=== PATIENT | male | born 1965 | race Caucasian/White ===

== ENCOUNTER 2025-01-09 21:36 | Inpatient (IN) | payer OTHER, SELFPAY ==
[2025-01-09 18:21] VITALS: BP 184/130
--- NOTE | 2025-01-09 19:16 | ED.GENMED ---
History of Present Illness
General
Chief Complaint: Swelling
Source: patient
Time Seen by Provider: 01/09/25 18:57
History of Present Illness
History of Present Illness:
This patient is a 5-year-old male presents emergency department with complaints of progressive swelling that he describes as 'water weight', over the past week or so. He elected to increase his Lasix dosing from 40 mg daily to twice daily and he is
not improving. In particular, he notes that his legs are swollen, his scrotum is swollen, and he has a 'buried penis 'because of the swelling in the scrotal/ area. He is urinating without difficulty, and denies dysuria, hematuria, flank pain,
fever, chills, nausea, vomiting, chest pain or pressure. He denies abdominal pain. He denies shortness of breath or dyspnea on exertion, but does note that he feels like he is wheezing when he goes to sleep associated with a nonproductive cough
for the last week or so. 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
Past History
Past History
ED Past Medical History: Other (A-fib, heart failure, insulin-dependent diabetes)
ED Past Surgical History: Orthopedic and Other (Toe amputation)
Social History
Tobacco: Former smoker
Alcohol: None
Drug: None
Personal: Single
Living: alone
Employment: Employed
Phy Exam
Physical Exam
Physical Exam:
GENERAL: Alert , in no apparent distress, nontoxic, pleasant
EYE: pupils equal and reactive
NECK: Supple, no significant adenopathy.
ENT: o/p clr, mmm.
CARDIAC: Regular rate and rhythm .
LUNGS: Clear breath sounds bilaterally, no acute respiratory distress, no wheezes/rales/rhonchi
ABDOMEN: Soft, without focal tenderness, no r/g, no cvat
NEUROLOGICAL: Alert and oriented, no focal neuro deficits
SKIN: Warm and dry, skin intact.
MUSCULOSKELETAL: 2+ left lower extremity edema, well perfused. (Patient has a right lower extremity amputation)
PSYCH: Normal and appropriate interaction.
: There is scrotal soft tissue swelling noted throughout without associated tenderness to palpation, redness, warmth, blistering, or other abnormalities. Meatus without lesions
Scores
Heart Failure Risk
Heart Failure Risk Score: Not Applicable
Course
Orders/Labs/Results
Orders:
Orders
01/09/25 19:15
Cardiac Monitoring- Treatment ONCE
CR Chest - 2 Views Urgent
Comment:
Reason For Exam: cough
Pulse Ox/cont/shift [RESP] Stat
Quantity: 1
01/09/25 19:39
Complete Blood Count/No Diff Urgent
Comprehensive Metabolic Panel Urgent
NT-proBNP Urgent
Troponin I Urgent
Abnormal Lab Results
01/09/25
19:39
Hgb 12.5 L g/dL
(13.0-18.0)
MCH 26.3 L pg
(27.0-31.0)
MCHC 30.4 L g/dL
(33.0-37.0)
RDW 15.2 H %
(11.5-14.5)
Carbon Dioxide 31 H mmol/L
(22-30)
BUN 22 H mg/dl
(9-20)
Glucose 179 H mg/dl
(70-99)
Total Protein 6.0 L g/dl
(6.3-8.2)
Albumin 3.4 L g/dl
(3.5-5.0)
01/09/25 19:39
01/09/25 19:39
Vital Signs
Initial and Last Documented VS:
Initial Vital Signs
Temp Pulse Resp BP Pulse Ox
97.6 F 106 20 184/130 97
01/09/25 18:21 01/09/25 18:21 01/09/25 18:21 01/09/25 18:21 01/09/25 18:21
Last Documented Vital Signs
Temp Pulse Resp BP Pulse Ox
97.6 F 106 20 184/130 97
01/09/25 18:21 01/09/25 18:21 01/09/25 18:21 01/09/25 18:21 01/09/25 18:21
*Critical Care Note
Total Time (30-74mins, 75-104mins- exclusive of procedures): Not Applicable
Update Note
Update Note:
Patient presents to the Emergency Department with ___swelling
Number and Complexity of Problems Addressed at the Encounter
� Chronic conditions affecting care:
� Acute Exacerbation and/or Progression of Chronic Illness:
� Differential Diagnosis includes: But not limited to heart failure exacerbation, medication noncompliance, etc. etc.
Amount and/or Complexity of Data to be Reviewed and Analyzed
� I performed an independent evaluation of and my interpretation is:
EKG: Read by me, left axis deviation, slightly low voltage, no acute ischemia, junctional
CT:
Xrays: Read by radiology, moderate pulmonary edema with small right pleural effusion feel more
Laboratory Studies: Troponin 0.033, unremarkable. BNP elevated 3730 consistent with suspected heart failure exacerbation
Other:
� Review of other/old records reveals:
� Clinical information was obtained by an independent historian:
� Prescriptions/Medications Considered but not given:
� Further testing considered but not performed:
Risk of Complications and/or Morbidity or Mortality of Patient Management
� Social determinants of health affecting care:
� Discussion with other providers (PCP, Hospitalists, Consultants, etc):
� Escalation of care including admission/observation vs risk of discharge considered: 8:33 PM patient with suspected heart failure exacerbation, describes wheezing while laying down, pulmonary edema noted on chest x-ray and BNP
also elevated. He has swelling noted on exam. Patient is unclear of his baseline weight. Will give IV Lasix here and admit for further care. No chest pain
ED Attending Note
-
Portions of this chart may have been created with voice recognition software.� Occasional wrong word or��sound alike� substitutions may have occurred due to the inherent limitations of voice recognition software.
Discharge Plan
Departure
Patient Disposition: Admit
Date of Disposition: 01/09/25
Time of Disposition: 20:37
Admit to: Telemetry
Admit to doctor: tiffanie
Presentation/result/management discussed w/ accepting MD/DO: Hospitalist
Condition: Fair
Discharge Problem:
Heart failure
Prescriptions:
No Action
furosemide [Lasix] 40 mg Tablet
40 mg PO BID
Discharge Date and Time
Print Language: BRITISH
[2025-01-09 19:30] VITALS: BP 143/91
[2025-01-09 19:40] VITALS: BP 150/95
[2025-01-09 19:50] LABS: Hematocrit 41.1 % (39.0-52.0); Hemoglobin 12.5 g/dL (13.0-18.0); Mean Corp Hgb Conc. 30.4 g/dL (33.0-37.0); Mean Corpuscular Hgb 26.3 pg (27.0-31.0); Mean Corpuscular Volume 86.5 fL (80.0-94.0); Mean Platelet Volume 9.7 fL (7.4-10.4); Platelet Count 247 10^3/uL (130-400); Red Blood Cell Count 4.75 10^6/uL (4.70-6.10); Red Cell Dist. Width 15.2 % (11.5-14.5); White Blood Cell Count 8.5 10^3/uL (4.8-10.8)
[2025-01-09 20:09] LABS: NT-proBNP 3730 pg/ml; Troponin I 0.033 ng/ml
[2025-01-09 20:10] LABS: ALT (SGPT) 25 U/L (0-50); AST (SGOT) 33 U/L (17-59); Albumin 3.4 g/dl (3.5-5.0); Alkaline Phosphatase 114 U/L (38-126); Blood Urea Nitrogen 22 mg/dl (9-20); Calcium 8.4 mg/dl (8.4-10.2); Carbon Dioxide 31 mmol/L (22-30); Chloride 98 mmol/L (98-107); Glucose 179 mg/dl (70-99); Potassium 4.8 mmol/L (3.5-5.1); Sodium 136 mmol/L (135-145); Total Bilirubin 1.3 mg/dl (0.2-1.3); eGFR > 60.00
[2025-01-09] MEDS: LASIX 60 MG IV (20:55)
[2025-01-09 20:56] VITALS: BP 146/93
--- NOTE | 2025-01-09 20:56 | HPS.HSE ---
Family Physician
-
Family Physician:
Chief Complaint
-
swelling
History of Present Illness
59-year-old male past medical history of type II diabetes, right below-knee amputation, CHF, atrial fibrillation on Eliquis presenting with progressive swelling over the past week. He has swelling in his legs and scrotum and abdomen. He increase
his Lasix from 40 mg once a day to twice a day without improvement. He is urinating without difficulty. Denies urinary symptoms. He has shortness of breath and has wheezing when he goes to sleep with nonproductive cough for the past week. He has
not seen his memorial counselor in several months. Denies chest pain. Denies fevers or chills. He thinks he has gained 50 pounds in the past week.
He follows a memorial counselor in [place].
He quit drinking alcohol 4 years ago. Denies smoking.
No known family history of heart disease.
Medical History
Past Medical History
Past Medical History: Reports Other (type II diabetes, right below-knee amputation, CHF, atrial fibrillation on Eliquis)
Past Surgical History: Reports Other (Hernia repair,)
Social History
Tobacco: Non-smoker
Alcohol: None
Drug: None
Family History
Family History: Not pertinent
Allergies / Home Medications
Allergies reflects when Allergies were last updated in [facility].
Home Medications with original date entered in [facility]
Allergy/Medication List:
Allergies
Allergy/AdvReac Type Severity Reaction Status Date / Time
Penicillins AdvReac Unknown Nosebleed, Verified 01/09/25 18:25
GI upset
Home Medications
furosemide 40 mg tablet (Lasix) 40 mg PO BID 04/01/23
Review of Systems
-
History Source: Patient
A 12 point ROS was completed and negative except as noted: Yes
Constitutional: Reports No Symptoms
EENT: Reports No Symptoms
Respiratory: Reports See HPI
Cardiac: Reports See HPI
Abdomen/GI: Reports See HPI
: Reports No Symptoms
Musculoskeletal: Reports No Symptoms
Skin: Reports No Symptoms
Neurological: Reports No Symptoms
Endocrine: Reports No Symptoms
Hematologic/Lymphatic: Reports No Symptoms
Psych: Reports No Symptoms
Physical Exam
Vital Signs
Vital Signs
Temp Pulse Resp BP Pulse Ox
97.6 F 106 20 184/130 97
01/09/25 18:21 01/09/25 18:21 01/09/25 18:21 01/09/25 18:21 01/09/25 18:21
Physical Exam
General: Well Developed, Well Nourished and No Apparent Distress
HEENT: NormoCephalic, Moist mucous membranes and Atraumatic
Respiratory: Clear
Cardiac: S1/S2 and Regular Rhythm; No Murmur or Rub
GI: Soft, Non Tender, Non Distended and Normal Bowel Sounds; No Organomegaly
Rectal: Deferred by Provider
Musculoskeletal: No Clubbing, No Cyanosis and No Edema
Skin: No Rash
Neuro: Nonfocal/grossly intact
Laboratory Results
-
01/09/25 19:39
01/09/25 19:39
Laboratory Results
Total Bilirubin 1.3 mg/dl (0.2-1.3) 01/09/25 19:39
AST 33 U/L (17-59) 01/09/25 19:39
ALT 25 U/L (0-50) 01/09/25 19:39
Alkaline Phosphatase 114 U/L (38-126) 01/09/25 19:39
Troponin I 0.033 ng/ml 01/09/25 19:39
Data Reviewed
-
Lab Data: Labs Reviewed by me
Old Records: Reviewed
Impression/Plan
-
IMPRESSION:
PLAN:
# Acute on chronic CHF exacerbation
-Cardiac BNP 3700
-Chest x-ray shows moderate acute interstitial and alveolar cardiogenic pulmonary edema
-Check I's and O's, daily weights
-40 IV Lasix twice daily
-Check echo
-Continue spironolactone, farxiga, Entresto, metoprolol
-Cardiology consulted
Type 2 diabetes
-Not on diabetic medication
-Insulin sliding scale
History of atrial fibrillation/flutter unspecified type
-Continue dabigatran
History of right BKA
Full code
DVT prophylaxis�dabigatran
Cardiac/diabetic
[2025-01-09 22:00] VITALS: BP 134/95
[2025-01-09 23:15] VITALS: BMI 48.1
[2025-01-09 23:42] LABS: Glucose - Point of Care 148 mg/dl (70-99)
[2025-01-09 23:44] VITALS: BMI 48.1
--- NOTE | 2025-01-10 00:28 | PTCARENOTE ---
Pt transferred from the ED to room 338-1. Pt walked to the bed. Admission and assessment complete. Oriented to room. Call singleton within reach.
[2025-01-10 02:04] VITALS: BP 155/97
[2025-01-10 03:36] VITALS: BP 140/88
[2025-01-10 06:00] VITALS: BMI 48.1
[2025-01-10 06:36] VITALS: BMI 48.1
--- NOTE | 2025-01-10 07:41 | W.PN.HOSP.TC ---
Today's Communication/Plan
-
see plan
Assessment / Plan
Assessment / Plan
Gen: NAD, AAOx3.
Eyes: EOMI, PERRLA, no scleral icterus.
Neck: supple.
CV: RRR, +S1/S2, no m/r/g.
Resp: CTAB, no rales, wheezes, or rhonchi.
Abd: +BS, soft, NT, ND
Skin: No rashes. 2-3+ B/L LE edema
Neuro: CN 2-12 intact, non-focal.
Psych: Normal mood and affect.
Acute on chronic CHF exacerbation
-proBNP 3700
-Chest x-ray shows moderate acute interstitial and alveolar cardiogenic pulmonary edema
-Check I/Os, daily wts
-increase lasix to 80mg IV BID
-Check echo
-Continue spironolactone, farxiga, Entresto, metoprolol
-Cardiology consulted
Other problems:
DM2: not on diabetic medications. Check a1c, SSI/accuchecks
h/o atrial fibrillation/flutter, unspecified type: cont dabigatran
Morbid obesity due to excess calories
h/o BKA
FULL/dabigatran
Anticipated Discharge: 24 - 48 hours
Subjective/Interval History
-
Date of Service: January 10, 2025
No new complaints.
Objective Data
-
Labs:
Laboratory Results
01/09/25 01/10/25
19:39 06:05
WBC 8.5 Pending
Hgb 12.5 L Pending
Hct 41.1 Pending
Plt Count 247 Pending
Sodium 136 Pending
Potassium 4.8 Pending
Chloride 98 Pending
Carbon Dioxide 31 H Pending
BUN 22 H Pending
Creatinine 1.0 Pending
Glucose 179 H Pending
Calcium 8.4 Pending
Total Bilirubin 1.3 Pending
AST 33 Pending
ALT 25 Pending
Alkaline Phosphatase 114 Pending
Vital Signs:
Vital Signs
Temp Pulse Resp BP Pulse Ox
99.0 F 93 18 140/88 94
01/10/25 03:36 01/10/25 03:36 01/10/25 03:36 01/10/25 03:36 01/10/25 03:36
I&O
01/09/25 01/10/25 01/11/25
06:59 06:59 06:59
Intake Total 480 / 480
Output Total 1000 / 1000
Balance -520 / -520
[2025-01-10 07:42] LABS: % Basophils 0.2 % (0-2); % Eosinophils 1.9 % (0-6); % Immature Granulocytes 0.4 % (0-0.5); % Lymphocytes 20.4 % (20.5-51.1); % Monocytes 11.7 % (1.7-9.3); % Neutrophils 65.4 % (42.2-75.2); Absolute Eosinophils 0.2 10^3/uL (0-0.7); Absolute Lymphocytes 1.7 10^3/uL (1.2-3.4); Absolute Neutrophils 5.5 10^3/uL (1.4-6.5); Hematocrit 39.2 % (39.0-52.0); Mean Corp Hgb Conc. 30.6 g/dL (33.0-37.0); Mean Corpuscular Hgb 26.3 pg (27.0-31.0); Mean Platelet Volume 9.6 fL (7.4-10.4); Nucleated Red Blood Cells % 0 % (-); Platelet Count 228 10^3/uL (130-400); Red Blood Cell Count 4.56 10^6/uL (4.70-6.10); Red Cell Dist. Width 15.4 % (11.5-14.5); White Blood Cell Count 8.5 10^3/uL (4.8-10.8)
[2025-01-10 07:48] VITALS: BP 138/86
[2025-01-10 08:08] LABS: ALT (SGPT) 23 U/L (0-50); AST (SGOT) 30 U/L (17-59); Albumin 2.9 g/dl (3.5-5.0); Alkaline Phosphatase 109 U/L (38-126); Blood Urea Nitrogen 19 mg/dl (9-20); Calcium 8.2 mg/dl (8.4-10.2); Carbon Dioxide 32 mmol/L (22-30); Chloride 101 mmol/L (98-107); Estimated Creatinine Clearance 118 ml/min; Glucose 173 mg/dl (70-99); Potassium 3.8 mmol/L (3.5-5.1); Sodium 138 mmol/L (135-145); Total Bilirubin 1.1 mg/dl (0.2-1.3); Total Protein 5.4 g/dl (6.3-8.2); eGFR > 60.00
[2025-01-10 08:28] LABS: Glucose - Point of Care 155 mg/dl (70-99)
[2025-01-10] MEDS: NOVOLOG FLEXPEN-LOW RESISTANCE 1 UNITS SC ×3 (08:44→17:59)
[2025-01-10] MEDS: LASIX 40 MG IV ×2 (08:45→10:52)
[2025-01-10] MEDS: VITAMIN D3 (cholecalciferol) 125 MCG PO (08:51)
[2025-01-10] MEDS: PRADAXA 150 MG PO ×2 (08:51→20:03)
--- NOTE | 2025-01-10 09:17 | CON.CAR ---
Addendum entered and electronically signed by Mike Woosd MD 01/10/25 12:27:
I saw and examined the patient.
The COVERING MACHINE OPERATOR's note was reviewed and I agree with the note.
Comment: 59 year old male (known to Dr. Benjamin, his primary senior relationship manager), with heart failure, atrial fibrillation, uncontrolled type 2 diabetes, and right BKA, presented to the emergency department with a chief complaint of progressive swelling.
He has chronic HF type unknown but feels his lasix is not working as well as prior. He says his base weight is 300 lbs, he is in acute on chronic presumed HFpEF.
- IV lasix bid
Original Note:
Medical History
-
Chief Complaint: Progressive swelling
History of Present Illness:
Giovanny Lew is a 59 year old male (known to Dr. Benjamin, his primary senior relationship manager), with heart failure, atrial fibrillation, uncontrolled type 2 diabetes, and right BKA, presented to the emergency department with a chief complaint of progressive
swelling. He endorses medication adherence with his furosemide. He does not think he is voiding as much as he used to when he was started on furosemide. He endorses orthopnea. He denies PND. He is volume overloaded on exam and chest x-ray. He
is on the hospitalist service and cardiology is consulted for heart failure management. He is not having any chest pain.
Past Medical History
Past Medical History: Arrhythmias (Atrial fibrillation [type unknown, on dabigatran]), CHF and NIDDM
Past Surgical History: Other (Right BKA)
Social History
Tobacco: Non-Smoker
Alcohol: None
Personal: Single
Living: Alone
Employment: Employed ([employer])
Family History
Family History: Reviewed & Not Pertinent
Allergies / Home Medications
Allergy/AdvReac Type Severity Reaction Status Date / Time
Penicillins AdvReac Unknown Nosebleed, Verified 01/09/25 18:25
GI upset
�Medication �Instructions �Recorded �Confirmed �Type
furosemide 40 mg tablet (Lasix) 40 mg PO BID Fluid 04/01/23 01/09/25 History
Retention/Swelling
dabigatran etexilate 150 mg 150 mg PO QPM Blood Clot 01/09/25 01/09/25 History
capsule (Pradaxa) Prevention/Tx
metoprolol succinate 25 mg 25 mg PO QPM Blood Pressure 01/09/25 01/09/25 History
tablet,extended release 24 hr
(Toprol XL)
spironolactone 25 mg tablet 25 mg PO QPM Fluid 01/09/25 01/09/25 History
Retention/Swelling
vitamin D3 125 mcg (5,000 1 cap PO DAILY Supplement 01/09/25 01/09/25 History
unit)-vitamin K2 180 mcg capsule
Review of Systems
-
History Source: Patient
All other systems: Negative unless noted
Constitutional: Weight Gain and Fatigue
EENT: No Symptoms
Respiratory: No Symptoms
Cardiac: No Symptoms
Abdomen/GI: No Symptoms
: No Symptoms
Musculoskeletal: Edema
Skin: No Symptoms
Neurological: No Symptoms
Hematologic/Lymphatic: No Symptoms
Physical Exam
Vital Signs
Temp Pulse Resp BP Pulse Ox
98.9 F 99 16 155/96 93
01/10/25 07:48 01/10/25 08:45 01/10/25 07:48 01/10/25 08:45 01/10/25 07:48
Lab Results
01/10/25 06:05
01/10/25 06:05
Troponin I 0.033 ng/ml 01/09/25 19:39
Tnz-C-Bjgbrendumc Pept 3730 pg/ml 01/09/25 19:39
Physical Exam
General: Well Developed, Well Nourished, No Apparent Distress and Comfortable
HEENT: Normocephalic and Moist Mucous Membranes
Respiratory: Crackles and Non Labored Respirations
Cardiac: S1/S2, Regular Rhythm and Peripheral Edema
Breast: Deferred by me
GI: Soft, Non Tender, Non Distended and Normal Bowel Sounds
Rectal: Deferred by Provider
Genito-urinary: No Costovertebral Tender
Musculoskeletal: No Clubbing, No Cyanosis and No Edema
Skin: Warm and Dry
Neuro: AO x 3
Impression / Plan
-
IMPRESSION/PLAN: 59M with heart failure, atrial fibrillation, uncontrolled type 2 diabetes, & right BKA, presented to the emergency department with a chief complaint of progressive swelling.
Primary senior relationship manager: Dr. Benjamin ([facility])
Heart failure, presumed HFpEF - acute on chronic
-CXR with pulmonary edema
-Diuresis with furosemide 40mg IV BID, this requires intensive monitoring
-Goal weight TBD
-Case management to check pricing on SGLT2
-Update echocardiogram
Atrial fibrillation, type unknown, presumed paroxysmal
-In sinus rhythm
-Oral Anticoagulation: Dabigatran 150 mg twice daily, he denies missed doses and abnormal bleeding
-[id number]: score at least 2 (Heart failure, Diabetes Mellitus)
PVCs, triplet on telemetry, increase beta payton
Type 2 diabetes mellitus, uncontrolled, HgbA1c 9.0%, he is not on any antidiabetic agents in the outpatient setting
Right BKA
[2025-01-10 11:27] VITALS: BP 146/90
[2025-01-10 11:44] LABS: Glucose - Point of Care 193 mg/dl (70-99)
--- NOTE | 2025-01-10 13:44 | CM ---
CM following re: discharge planning.
Reviewed pt's chart, met with p.
Pt is a 59 year old male, admitted with primary dx of Acute on chronic CHF exacerbation.
Pt reports he lives alone in an apartment 1st floor, 1 step to enter, has mother who lives in [place]. Pt stated he does not have any other family members, has supportive friend who livers in the same apartment. Pt reports he has prosthetic leg, uses a
cane for safety, had VN services in the past, cannot recall the name of VN provider. Pt expressed his desire to return back home at discharge.
CM consulted to check the [facility]ris for Farxiga 10 mg Daily and Jardiance 10 mg daily. Both medications have $30.00 co-pay for 30 day supply.Pt is aware and he stated he will afford to pay. MD is aware, Awaiting for MD to decide which medication is
chosen to give the pt coupons.
PCP: Komal Paige
Pharmacy: [facility].
D/C plan: home with anticipated no needs.
CM will follow with discharge plan updates as hospitalization progresses
[2025-01-10 15:03] VITALS: BP 140/90
[2025-01-10] MEDS: LASIX 80 MG IV (15:18)
[2025-01-10 16:28] LABS: Glucose - Point of Care 168 mg/dl (70-99)
[2025-01-10] MEDS: ALDACTONE 25 MG PO (17:59)
[2025-01-10] MEDS: TOPROL XL 25 MG PO (20:04)
[2025-01-10 21:56] LABS: Glucose - Point of Care 144 mg/dl (70-99)
[2025-01-10 23:00] VITALS: BP 128/84
[2025-01-11 03:35] VITALS: BP 117/79
[2025-01-11 05:38] VITALS: BMI 47.0
[2025-01-11 07:16] LABS: HDL Cholesterol 25 mg/dl; LDL Cholesterol, Calculated 63 mg/dl; Total Cholesterol 102 mg/dl (50-199); Triglyceride 72 mg/dl (10-149); Very Low Density Lipoprotein 14 mg/dl (0-30)
[2025-01-11 07:30] VITALS: BP 145/97
[2025-01-11 07:30] LABS: Glucose - Point of Care 115 mg/dl (70-99)
[2025-01-11] MEDS: NOVOLOG FLEXPEN-LOW RESISTANCE SC (07:32)
--- NOTE | 2025-01-11 07:45 | W.PN.HOSP.TC ---
Today's Communication/Plan
-
see bold
Assessment / Plan
Assessment / Plan
Gen: NAD, AAOx3.
Eyes: EOMI, PERRLA, no scleral icterus.
Neck: supple.
CV: Remains RRR, +S1/S2, no m/r/g.
Resp: Remains CTAB, no rales, wheezes, or rhonchi.
Abd: +BS, soft, NT, ND
Skin: No rashes. Remains 2-3+ B/L LE edema
Neuro: CN 2-12 intact, non-focal.
Psych: Normal mood and affect.
Acute on chronic CHF exacerbation
-proBNP 3700
-Chest x-ray shows moderate acute interstitial and alveolar cardiogenic pulmonary edema
-Check I/Os, daily wts
-increase lasix to 80mg IV BID
-Check echo
-Continue spironolactone, farxiga, Entresto, metoprolol
-Cardiology following
Other problems:
DM2: not on diabetic medications. a1c 9.0%, SSI/accuchecks/diabetic diet. Surprisingly patient has required minimal sliding scale insulin. For that reason we will continue sliding scale insulin only at this time. Consult diabetes CAD TECHNICIAN.
h/o atrial fibrillation/flutter, unspecified type: cont dabigatran/BB
Morbid obesity due to excess calories
h/o BKA
FULL/dabigatran
Anticipated Discharge: 24 - 48 hours
Subjective/Interval History
-
Date of Service: January 11, 2025
No new complaints.
Objective Data
-
Vital Signs:
Vital Signs
Temp Pulse Resp BP Pulse Ox
97.5 F 75 20 117/79 92
01/11/25 03:35 01/11/25 03:35 01/11/25 03:35 01/11/25 03:35 01/11/25 03:35
I&O
01/10/25 01/11/25 01/12/25
06:59 06:59 06:59
Intake Total 480 / 480 1200 / 1200
Output Total 1000 / 1000 1650 / 1650
Balance -520 / -520 -450 / -450
[2025-01-11] MEDS: TOPROL XL 25 MG PO ×2 (08:26→19:57)
[2025-01-11] MEDS: PRADAXA 150 MG PO ×2 (08:29→19:57)
[2025-01-11] MEDS: VITAMIN D3 (cholecalciferol) 125 MCG PO (08:29)
[2025-01-11] MEDS: LASIX 80 MG IV ×2 (08:30→15:26)
[2025-01-11 08:32] LABS: Blood Urea Nitrogen 21 mg/dl (9-20); Calcium 8.1 mg/dl (8.4-10.2); Carbon Dioxide 32 mmol/L (22-30); Chloride 98 mmol/L (98-107); Estimated Creatinine Clearance 117 ml/min; Glucose 125 mg/dl (70-99); Potassium 3.8 mmol/L (3.5-5.1); Sodium 137 mmol/L (135-145); eGFR > 60.00
[2025-01-11 11:30] VITALS: BP 139/88
--- NOTE | 2025-01-11 11:42 | W.PN.CD ---
Today's Communication / Plan
-
cont IV diuresis
Impression / Plan
-
IMPRESSION/PLAN: 59M with heart failure, atrial fibrillation, uncontrolled type 2 diabetes, & right BKA, presented to the emergency department with a chief complaint of progressive swelling.
Primary dental professional: Dr. Benjamin ([facility])
Heart failure, presumed HFpEF - acute on chronic
-CXR with pulmonary edema
-Lasix now 80 mg IV bid cont
-Goal weight TBD
-Case management to check pricing on SGLT2
-Update echocardiogram
Atrial fibrillation, type unknown, presumed paroxysmal
-In sinus rhythm
-Oral Anticoagulation: Dabigatran 150 mg twice daily, he denies missed doses and abnormal bleeding
-[id number]: score at least 2 (Heart failure, Diabetes Mellitus)
PVCs, triplet on telemetry, increase beta payton
Type 2 diabetes mellitus, uncontrolled, HgbA1c 9.0%, he is not on any antidiabetic agents in the outpatient setting
Right BKA
Subjective: No new complaitns
Physical Exam
Vital Signs/Labs
Vital Signs
Temp Pulse Resp BP Pulse Ox
98.6 F 87 18 130/78 96
01/11/25 07:30 01/11/25 08:26 01/11/25 07:30 01/11/25 08:26 01/11/25 09:33
01/10/25 01/11/25 01/12/25
06:59 06:59 06:59
Actual Weight 374 lb 1 oz 365 lb 12.8 oz
01/10/25 06:05
01/11/25 07:47
Triglycerides 72 mg/dl (10-149) 01/11/25 05:28
LDL Cholesterol, Calc 63 mg/dl 01/11/25 05:28
VLDL Cholesterol, Calc 14 mg/dl (0-30) 02/23/25 05:28
HDL Cholesterol 25 mg/dl 01/11/25 05:28
01/09/25
19:39
Snl-R-Frwhmtrmsvc Pept 3730
LAB Results
01/09/25
19:39
Troponin I 0.033
Physical Exam
Constitutional: No acute distress and Other (obese)
EENT: Anicteric
Cardiovascular: Rhythm & rate is regular and Pedal edema present
Respiratory: Respiratory effort normal and Lungs clear to auscul.
GI: Soft
Neuro/Psych: AO x 3
Data Reviewed
-
Date of Service: January 11, 2025
EKG: Tracing Personally Visualized and interpreted (appears sr )
Echo: Ordered by me
Labs: Labs Reviewed by me
[2025-01-11 11:43] LABS: Glucose - Point of Care 168 mg/dl (70-99)
[2025-01-11] MEDS: NOVOLOG FLEXPEN-MODERATE RESISTANCE 1 UNITS SC ×2 (11:46→17:42)
[2025-01-11 16:00] VITALS: BP 138/85
[2025-01-11 16:39] LABS: Glucose - Point of Care 158 mg/dl (70-99)
[2025-01-11] MEDS: ALDACTONE 25 MG PO (17:43)
[2025-01-11 19:00] VITALS: BP 128/84
[2025-01-11 21:06] LABS: Glucose - Point of Care 149 mg/dl (70-99)
[2025-01-11 23:00] VITALS: BP 138/89
[2025-01-12 03:00] VITALS: BP 123/69
[2025-01-12 06:00] VITALS: BMI 45.9
[2025-01-12 06:09] LABS: Blood Urea Nitrogen 22 mg/dl (9-20); Calcium 8.7 mg/dl (8.4-10.2); Carbon Dioxide 32 mmol/L (22-30); Chloride 98 mmol/L (98-107); Estimated Creatinine Clearance 117 ml/min; Glucose 146 mg/dl (70-99); Sodium 135 mmol/L (135-145); eGFR > 60.00
[2025-01-12 07:40] VITALS: BP 138/85
[2025-01-12 07:50] LABS: Glucose - Point of Care 137 mg/dl (70-99)
[2025-01-12] MEDS: NOVOLOG FLEXPEN-MODERATE RESISTANCE SC ×3 (08:06→19:10)
--- NOTE | 2025-01-12 08:09 | PN.DE.MGMTRT ---
Insulin Management
- -
01/12/2025: Diabetes Management Consult
59 year old male who presented to the ED with progressive swelling due to acute CHF Exacerbation.
PMH: CHF, A-Fib, RBKA, and uncontrolled T2DM. Of note, pt was not on any antidiabetic agents in the outpatient setting.
A1C 9.0%, Cr 1.1, eGFR>60.
Pt awake, alert, oriented, sitting up in bed, offers no complaints, able to discuss diabetes management
States that he has known for years that he has Diabetes and that he was taking Metformin and Glipizide but stopped taking both meds several years ago. Also reports that he has a glucose meter at home but does not test his blood sugars.
Current diabetes regimen includes corrective insulin only. Glucose has remained stable and in range since admission.
01/11 Premeal range 115 to 168, requiring 1 units of corrective insulin. FBG 146(V), 137 POC this AM.
Will start Glipizide 2.5mg daily, 1st dose now.
Pt was offered a new glucose meter but declined it stating that he doesn't need it.
Discussed with Nurse. Will cont to follow
Diabetes History
- -
Type of Diabetes: 2 requiring insulin
Pre-Admission Diabetes Regimen
01/11/25 01/12/25
05:28 05:06
Creatinine 1.1 1.1
Lab Results
Hemoglobin A1c 9.0 % (4.0-5.6) H 01/10/25 06:05
Insulin Pump Settings
IP Diabetes Regimen
01/11/25 01/11/25 01/11/25
05:28 11:42 16:37
Glucose 125 H
POC Glucose 168 H 158 H
01/11/25 01/12/25 01/12/25
21:06 05:06 07:49
Glucose 146 H
POC Glucose 149 H 137 H
Patient Education
[2025-01-12] MEDS: PRADAXA 150 MG PO (08:34)
[2025-01-12] MEDS: LASIX 80 MG IV ×2 (08:34→15:49)
[2025-01-12] MEDS: TOPROL XL 25 MG PO ×2 (08:36→20:55)
[2025-01-12] MEDS: VITAMIN D3 (cholecalciferol) 125 MCG PO (08:36)
--- NOTE | 2025-01-12 09:24 | W.PN.CD ---
Today's Communication / Plan
-
Cont diuresis
Farxiga 10 mg to start today
Impression / Plan
-
IMPRESSION/PLAN: 59M with heart failure, atrial fibrillation, uncontrolled type 2 diabetes, & right BKA, presented to the emergency department with a chief complaint of progressive swelling.
Primary textile screen printer: Dr. Benjamin ([facility])
Heart failure, presumed HFpEF - acute on chronic
-CXR with pulmonary edema
-Lasix now 80 mg IV bid cont
-Goal weight TBD
-Starting Farxiga 10 mg
-Update echocardiogram
Atrial fibrillation, type unknown, presumed paroxysmal
-In sinus rhythm
-Oral Anticoagulation: Dabigatran 150 mg twice daily, he denies missed doses and abnormal bleeding
-[id number]: score at least 2 (Heart failure, Diabetes Mellitus)
PVCs, triplet on telemetry, increase beta payton
Type 2 diabetes mellitus, uncontrolled, HgbA1c 9.0%, he is not on any antidiabetic agents in the outpatient setting
Right BKA
Subjective: No new complaints
Physical Exam
Vital Signs/Labs
Vital Signs
Temp Pulse Resp BP Pulse Ox
97.5 F 72 20 138/85 92
01/12/25 07:40 01/12/25 07:40 01/12/25 07:40 01/12/25 07:40 01/12/25 07:40
01/11/25 01/12/25 01/13/25
06:59 06:59 06:59
Actual Weight 365 lb 12.8 oz 357 lb 4.8 oz
01/10/25 06:05
01/12/25 05:06
Triglycerides 72 mg/dl (10-149) 01/11/25 05:28
LDL Cholesterol, Calc 63 mg/dl 01/11/25 05:28
VLDL Cholesterol, Calc 14 mg/dl (0-30) 01/11/25 05:28
HDL Cholesterol 25 mg/dl 01/11/25 05:28
01/09/25
19:39
Xsn-S-Rkqyvrqwoga Pept 3730
LAB Results
01/09/25
19:39
Troponin I 0.033
Physical Exam
Constitutional: No acute distress and Comfortable
EENT: Anicteric
Cardiovascular: Rhythm & rate is regular and Pedal edema present
Respiratory: Respiratory effort normal and Lungs clear to auscul.
GI: Soft
Neuro/Psych: AO x 3
Data Reviewed
-
Date of Service: January 12, 2025
EKG: Tracing Personally Visualized and interpreted (sr)
Labs: Labs Reviewed by me
[2025-01-12] MEDS: FARXIGA 10 MG PO (10:32)
[2025-01-12 10:51] VITALS: BP 129/68
--- NOTE | 2025-01-12 11:57 | CARDSERVLU ---
Echocardiogram with [facility]ason completed after protocol screening completed. Allergies verified.
Patent IV site: _Right arm 20 g PC (in patient)____
IV site flushed with 0.9% NaCl pre and post administration.
Diluted bolus method utilized to enhance visualization of ventricular agarwal.
Total volume given: __4__ mL
Patient tolerated all procedures well without complications.
[2025-01-12] MEDS: GLUCOTROL 2.5 MG PO (12:46)
[2025-01-12 12:49] LABS: Glucose - Point of Care 146 mg/dl (70-99)
--- NOTE | 2025-01-12 14:55 | CM ---
Patient seen at bedside with physicians. Patient stated that he plans to return home but continues to need medication. CM will continue to follow for discharge planning needs.
Plan; home with no VN needed. watch for coupon needed
--- NOTE | 2025-01-12 15:40 | W.PN.HOSP.TC ---
Addendum entered and electronically signed by Diana Rowley MD 01/12/25 17:23:
I saw and evaluated the patient independently. I reviewed the resident�s note and agree with findings and plan as documented by Dr. Rodgers.
GENERAL: well developed, well nourished, male in no apparent distress
HEENT: NC/AT--no O2 requirements
HEART: regular rate and rhythm, +S1, +S2
LUNGS : clear to auscultation bilaterally
ABDOM: soft, nontender, nondistended, + bowel sounds
EXT: no cyanosis, clubbing, or edema--right BKA
NEUROLOGIC: grossly intact
: scrotal swelling
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
IV lasix BID--daily weights, I/Os--cont aldactone, farxiga, entresto, metoprolol
DM2--not on diabetic medications, despite HGB A1C of 9-- SSI/accuchecks--Appreciate Diabetes MANAGER CHEMICAL
h/o atrial fibrillation/flutter, unspecified type-- cont dabigatran/BB
Morbid obesity due to excess calories
h/o BKA
DVT proph
Code status--FULL
Original Note:
Today's Communication/Plan
-
Continue 80mg IV lasix, daily weights, I and Os
Assessment / Plan
Assessment / Plan
59-year-old male with type 2 diabetes mellitus, CHF, Right BKA, who presents with bilateral lower extremity, scrotal, and abdominal swelling
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
proBNP 3700
Chest x-ray shows moderate acute interstitial and alveolar cardiogenic pulmonary edema
Echo with EF 40-45%, with LAD right wall motion abnormality
-Check I/Os, daily wts. Diuresing well on Lasix 80mg IV BID (increased from 40 BID)
-Continue spironolactone, farxiga, Entresto, metoprolol
-Cardiology following
Other problems:
DM2: not on diabetic medications. a1c 9.0%, SSI/accuchecks/diabetic diet. Appreciate Diabetes MANAGER CHEMICAL
h/o atrial fibrillation/flutter, unspecified type: cont dabigatran/BB
Morbid obesity due to excess calories
h/o BKA
FULL/dabigatran
Anticipated Discharge: > 48 hours
Subjective/Interval History
-
Date of Service: January 12, 2025
No acute overnight events
Objective Data
-
Labs:
Laboratory Results
01/12/25
05:06
Sodium 135
Potassium 4.0
Chloride 98
Carbon Dioxide 32 H
BUN 22 H
Creatinine 1.1
Glucose 146 H
Calcium 8.7
Vital Signs:
Vital Signs
Temp Pulse Resp BP Pulse Ox
97.8 F 72 18 129/68 92
01/12/25 10:51 01/12/25 10:51 01/12/25 10:51 01/12/25 10:51 01/12/25 10:51
I&O
01/11/25 01/12/25 01/13/25
06:59 06:59 06:59
Intake Total 1200 / 1200 860 / 860 960 / 960
Output Total 1650 / 1650 4475 / 4475 600 / 600
Balance -450 / -450 -3615 / -3615 360 / 360
Review of Systems
-
History Source: Patient
Constitutional: Reports Weight Gain
Cardiac: Denies Chest Pain
Genitourinary: Reports Other (Scrotal swelling)
Musculoskeletal: Reports Edema
Skin: Reports Itching (back )
Physical Exam
-
General: Well Developed, Well Nourished, No Apparent Distress and Comfortable
HEENT: Normocephalic, Atraumatic and Moist Mucous Membranes
Respiratory: Clear to Auscultation and Non Labored Respirations; Negative Wheezes, Rales, Rhonchi or Crackles
Cardiac: Regular Rhythm and S1/S2; Negative Murmur, Rub or Calf Tenderness
GI: Nontender, Normal Bowel Sounds and Distended
Genito-urinary: No Costovertebral Tender
Musculoskeletal: No Clubbing, No Cyanosis, Edema, Left Upper Extrem, Edema, Right Lower Extrem and Edema, Left Lower Extrem
Skin: Warm, Dry and Other (mild diffuse redness on back, no distinct rash)
Neuro: Awake, Alert and Oriented
Psych: Calm
[2025-01-12 16:51] VITALS: BP 123/81
--- NOTE | 2025-01-12 17:28 | W.PN.UPDATE ---
Update Note
Progress Note Update
EF down on echo with WMA. Per Dr. Santizo who discussed with Dr. Woods (who saw patient today), set patient up for heart cath tomorrow. I spoke to patient, who is agreeable. I also spoke to nursing regarding the plan and let the laborer adjustable steel joist charge
RN know. Pradaxa will be held tonight and tomorrow, then should be resumed as appropriate after procedure. Full dose ASA given now and added 81 mg daily, but this should be reassessed after cath based on results.
[2025-01-12] MEDS: ASPIRIN 325 MG PO (17:36)
[2025-01-12] MEDS: ALDACTONE 25 MG PO (17:36)
[2025-01-12 17:40] LABS: Glucose - Point of Care 98 mg/dl (70-99)
[2025-01-12 19:00] VITALS: BP 140/78
[2025-01-12] MEDS: HYDROCORTISONE 2.5% OINTMENT 1 APPLIC TOPICAL (20:55)
[2025-01-12 21:15] LABS: Glucose - Point of Care 135 mg/dl (70-99)
[2025-01-12 23:00] VITALS: BP 117/79
[2025-01-13] VITALS (14 sets, daily range): BP systolic 112–159; BP diastolic 72–87; PULSE 74; O2SAT 95; BMI 44.3
[2025-01-13 05:48] LABS: Glucose - Point of Care 109 mg/dl (70-99)
[2025-01-13 06:02] LABS: Blood Urea Nitrogen 23 mg/dl (9-20); Calcium 8.6 mg/dl (8.4-10.2); Carbon Dioxide 33 mmol/L (22-30); Chloride 93 mmol/L (98-107); Estimated Creatinine Clearance 113 ml/min; Glucose 125 mg/dl (70-99); Phosphorus 4.6 mg/dl (2.5-4.5); Potassium 3.5 mmol/L (3.5-5.1); Sodium 135 mmol/L (135-145); eGFR > 60.00
[2025-01-13 06:11] LABS: Hematocrit 42.2 % (39.0-52.0); Mean Corp Hgb Conc. 30.8 g/dL (33.0-37.0); Mean Corpuscular Hgb 26.1 pg (27.0-31.0); Mean Corpuscular Volume 84.7 fL (80.0-94.0); Mean Platelet Volume 9.2 fL (7.4-10.4); Platelet Count 225 10^3/uL (130-400); Red Blood Cell Count 4.98 10^6/uL (4.70-6.10); Red Cell Dist. Width 15.3 % (11.5-14.5); White Blood Cell Count 6.6 10^3/uL (4.8-10.8)
[2025-01-13] MEDS: FARXIGA 10 MG PO (07:36)
[2025-01-13] MEDS: GLUCOTROL 2.5 MG PO (07:36)
[2025-01-13] MEDS: LOW STRENGTH ASPIRIN 81 MG PO (07:36)
[2025-01-13] MEDS: LASIX 80 MG IV (07:37)
[2025-01-13] MEDS: VITAMIN D3 (cholecalciferol) 125 MCG PO (07:37)
[2025-01-13] MEDS: TOPROL XL 25 MG PO ×2 (07:37→20:26)
[2025-01-13] MEDS: HYDROCORTISONE 2.5% OINTMENT 1 APPLIC TOPICAL ×2 (07:44→20:27)
--- NOTE | 2025-01-13 08:14 | PN.DE.MGMTRT ---
Insulin Management
- -
01/13/2025: Diabetes Management Consult Follow up
Patient admitted with progressive swelling due to acute CHF Exacerbation. PMH: CHF, A-Fib, RBKA, and uncontrolled T2DM. Of note, pt was not on any antidiabetic agents in the outpatient setting. A1C 9.0%, Cr 1.1, eGFR>60.
Pt awake, alert, oriented, sitting up in bed, offers no complaints, able to discuss diabetes management. States he was taking Metformin and Glipizide but stopped taking both meds several years ago. Also reports that he has a glucose meter at home
but does not test his blood sugars.
01/12 Glipizide 2.5 mg and Farxiga 10 mg daily started. Premeal range 98 to 146, no corrective insulin required. FBG 125 venous, 109 POC this AM.
01/13 Patient for Cardiac cath, currently NPO. Will make no change to regimen.
Pt was offered a new glucose meter but declined it stating that he doesn't need it.
Discussed with Nurse. Will cont to follow
Diabetes History
- -
Type of Diabetes: 2
Pre-Admission Diabetes Regimen
01/13/25
05:13
Creatinine 1.1
Lab Results
Hemoglobin A1c 9.0 % (4.0-5.6) H 01/10/25 06:05
Insulin Pump Settings
IP Diabetes Regimen
01/12/25 01/12/25 01/12/25
12:48 17:39 21:14
Glucose
POC Glucose 146 H 98 135 H
01/13/25 01/13/25
05:13 05:47
Glucose 125 H
POC Glucose 109 H
Patient Education
--- NOTE | 2025-01-13 11:59 | PTOTSP ---
pt currently requires supervision to no assistance to complete simple ADLs, functional transfers, ambulation. pt demonstrates no overt deficits, no acute OT needs. will sign off.
[2025-01-13 12:00] LABS: Glucose - Point of Care 108 mg/dl (70-99)
--- NOTE | 2025-01-13 13:32 | W.PN.HOSP.TC ---
Addendum entered and electronically signed by Diana Rowley MD 01/13/25 16:03:
I saw and evaluated the patient independently. I reviewed the resident�s note and agree with findings and plan as documented by Dr. Rodgers.
GENERAL: well developed, well nourished, male in no apparent distress
HEENT: NC/AT--no O2 requirements
HEART: regular rate and rhythm, +S1, +S2
LUNGS : clear to auscultation bilaterally
ABDOM: soft, nontender, nondistended, + bowel sounds
EXT: no cyanosis, clubbing-- 4+ edema bilaterally--right BKA
NEUROLOGIC: grossly intact
: scrotal swelling
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
BID--daily weights, I/Os--cont aldactone, farxiga, entresto, metoprolol
DM2--not on diabetic medications, despite HGB A1C of 9-- SSI/accuchecks--Appreciate Diabetes PROCESSING REP
h/o atrial fibrillation/flutter, unspecified type-- cont dabigatran/BB
Morbid obesity due to excess calories
h/o BKA
DVT proph
Code status--FULL
Original Note:
Today's Communication/Plan
-
Continue IV diuresis. For heart cath today
Assessment / Plan
Assessment / Plan
59-year-old male with type 2 diabetes mellitus, CHF, Right BKA, who presents with bilateral lower extremity, scrotal, and abdominal swelling
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
proBNP 3700
Chest x-ray shows moderate acute interstitial and alveolar cardiogenic pulmonary edema
Echo with EF 40-45%, with LAD right wall motion abnormality
-Check I/Os, daily wts. Diuresing well on Lasix 80mg IV BID (increased from 40 BID)
-Continue spironolactone, farxiga, Entresto, metoprolol. ASA added.
-Cardiology following, for heart cath today
Other problems:
DM2: not on diabetic medications. a1c 9.0%, SSI/accuchecks/diabetic diet. Started Glipizide 2.5mg. Appreciate Diabetes PROCESSING REP
h/o atrial fibrillation/flutter, unspecified type: cont BB, Dabigatran held for cath
Morbid obesity due to excess calories
h/o BKA
FULL code
DVT ppx: dabigatran held for cath
Anticipated Discharge: 24 - 48 hours
Subjective/Interval History
-
Date of Service: January 13, 2025
Patient happy with rate of diuresis, feels his symptoms are improving
Objective Data
-
Labs:
Laboratory Results
01/13/25
05:13
WBC 6.6
Hgb 13.0
Hct 42.2
Plt Count 225
Sodium 135
Potassium 3.5
Chloride 93 L
Carbon Dioxide 33 H
BUN 23 H
Creatinine 1.1
Glucose 125 H
Calcium 8.6
Vital Signs:
Vital Signs
Temp Pulse Resp BP Pulse Ox
97.6 F 70 18 121/75 95
01/13/25 10:54 01/13/25 10:54 01/13/25 10:54 01/13/25 10:54 01/13/25 10:54
I&O
01/12/25 01/13/25 01/14/25
06:59 06:59 06:59
Intake Total 860 / 860 1800 / 1800
Output Total 4475 / 4475 6800 / 6800
Balance -3615 / -3615 -5000 / -5000
Review of Systems
-
History Source: Patient
Respiratory: Denies Trouble Breathing
Cardiac: Denies Chest Pain
Physical Exam
-
General: Well Nourished, No Apparent Distress and Comfortable; Negative Respiratory Distress
HEENT: Normocephalic, Atraumatic and Moist Mucous Membranes
Respiratory: Clear to Auscultation and Non Labored Respirations; Negative Wheezes, Rales, Rhonchi or Crackles
Cardiac: Regular Rhythm and S1/S2; Negative Murmur, Rub or Calf Tenderness
GI: Soft, Nontender, Nondistended and Normal Bowel Sounds
Genito-urinary: Other (dependent scrotal edema)
Musculoskeletal: Edema, Right Lower Extrem and Edema, Left Lower Extrem (bilateral edema up to mid/lower abdomen)
Neuro: Awake, Alert and Oriented
Psych: Calm and Confused
--- NOTE | 2025-01-13 15:33 | PN.CDI ---
CDI
- -
CDI:
Physician Documentation Request
Admit Date: 01/09/25 21:36
Dear Doctor Ana Maria,
Clinical Indicators:
Patient admitted with acute on chronic HFmrEF exacerbation.
Home meds: Aldactone, Metoprolol
Blood pressure trend:
01/09/25
18:21 01/10/25
02:04 01/10/25
08:45
Blood pressure 184/130 155/97 155/96
01/10/25
15:18 01/11/25
07:30 01/11/25
17:43
Blood pressure 159/98 145/97 140/84
01/12/25
07:40 01/12/25
20:55
Blood pressure 138/85 140/78
Based on the above, could you clarify in the progress notes, the appropriate diagnosis, if significant, that supports the above abnormalities and additional evaluation, monitoring and/or treatment rendered:
Essential primary hypertension
Elevated blood pressure only
Other (please specify)
Use of terms such as suspected, likely, concern for, or probable (associated with a specific diagnosis that is being evaluated, monitored, or treated as if it exists) are acceptable and can be coded in the inpatient setting, when documented at the
time of discharge.
Thank you,
Le Merrill RN BSN
CDI Specialist
available via tiger text
Please use your independent medical judgment in providing your response.
[2025-01-13 17:18] LABS: ACT-LR - POC 297 Seconds (116-155)
[2025-01-13] MEDS: LASIX IV (17:55)
[2025-01-13] MEDS: ALDACTONE 25 MG PO (18:07)
[2025-01-13 18:12] LABS: Glucose - Point of Care 86 mg/dl (70-99)
--- NOTE | 2025-01-13 18:56 | ITS.CL.PN ---
[facility] - Procedure Note
Procedure
Procedure Note:
CARDIAC CATHETERIZATION REPORT
Date of Procedure: 01/13/2025
Referring: Dr. Audrey Santizo MD
Indication: newly reduced EF, heart failure exacerbation
PROCEDURE(S)
1. left heart catheterization
2. coronary angiography
3. iFR of LAD
ACCESS: 6F right radial artery (closure: radial band)
CATHETERS
1. 6F JR4
2. 6F JL3.5
3. 6F EBU3.5 guide catheter
MODERATE SEDATION: 45 minutes of moderate sedation was utilized. An independent medical technologist chief was present to assist with and help manage the patient's level of consciousness and physiologic status.
ULTRASOUND GUIDED VASCULAR ACCESS (right radial artery): Ultrasound was utilized for vascular access. The vessel was visualized under ultrasound and noted to be patent. An image of the vessel was stored permanently in the patient's medical record.
Under direct ultrasound guidance, vascular access was obtained using a modified Seldinger technique and a 6 Setswana sheath was placed.
HEMODYNAMIC DATA
LV 132/18 (EDP 25) mmHg
AO 133/87 (mean 108) mmHg
CORONARY ANGIOGRAPHY
Dominance: Right
LM: Large, normal
LAD: Large vessel giving rise to a large D1. There is a 50% ostial stenosis in the D1 and otherwise no significant coronary artery disease.
LCx: Large vessel giving rise to a small OM1 and very large OM 2 branch. There is no significant coronary artery disease
RCA: Large vessel giving rise to a large RPDA and several RPL branches. There is no significant coronary artery disease.
iFR of D1
An Omni wire was flushed and zeroed outside the body and then advanced to the left main. The wire introducer was removed and the catheter flushed with saline, after which pressure of the wire and guide were normalized. The wire was advanced to the
mid body of D1 and iFR recorded at 0.94 (negative). On return to the left main, iFR appropriately normalized to ~1.0, confirming lack of wire drift.
RADIATION: dose 958.70 mGy; DAP 81.7472 Gy*cm2; fluoroscopy time 8.6 min
CONCLUSIONS
1. Single-vessel coronary artery disease as described with iFR negative ostial stenosis of the D1.
2. Elevated LV filling pressure and no aortic stenosis
RECOMMENDATIONS
1. expectant management after cardiac catheterization via right radial approach
2. aggressive secondary prevention of coronary artery disease
3. GDMT for HFrEF
4. diuresis
Copy to: Dr. Tony Benjamin MD (personal computer network analyst); Dr. Komal Paige DO (PCP)
Signed: Tor Lindsay MD, PhD
[2025-01-13 22:03] LABS: Glucose - Point of Care 129 mg/dl (70-99)
[2025-01-14] VITALS (7 sets, daily range): BP systolic 114–132; BP diastolic 71–82; BMI 43.3
[2025-01-14 05:53] LABS: Hemoglobin 13.4 g/dL (13.0-18.0); Mean Corp Hgb Conc. 31.2 g/dL (33.0-37.0); Mean Corpuscular Hgb 25.9 pg (27.0-31.0); Mean Corpuscular Volume 83.2 fL (80.0-94.0); Mean Platelet Volume 9.2 fL (7.4-10.4); Platelet Count 228 10^3/uL (130-400); Red Blood Cell Count 5.17 10^6/uL (4.70-6.10); Red Cell Dist. Width 15.4 % (11.5-14.5)
[2025-01-14 06:21] LABS: Blood Urea Nitrogen 24 mg/dl (9-20); Calcium 8.8 mg/dl (8.4-10.2); Carbon Dioxide 35 mmol/L (22-30); Chloride 93 mmol/L (98-107); Estimated Creatinine Clearance 102 ml/min; Glucose 106 mg/dl (70-99); Magnesium 2.2 mg/dl (1.6-2.3); Potassium 3.7 mmol/L (3.5-5.1); Sodium 137 mmol/L (135-145); eGFR > 60.00
--- NOTE | 2025-01-14 07:13 | PN.DE.MGMTRT ---
Insulin Management
- -
01/14/2025: Diabetes Management Consult Follow up
Patient admitted with progressive swelling due to acute CHF Exacerbation. PMH: CHF, A-Fib, RBKA, and uncontrolled T2DM. Of note, pt was not on any antidiabetic agents in the outpatient setting. A1C 9.0%, Cr 1.1, eGFR>60.
Pt awake, alert, oriented, sitting up in bed, offers no complaints, able to discuss diabetes management. States he was taking Metformin and Glipizide but stopped taking both meds several years ago. Also reports that he has a glucose meter at home
but does not test his blood sugars.
01/14 Cardiac cath completed 01/13. Glucose range 86 to 129, fasting today 106. Will make no change to regimen.
Pt was offered a new glucose meter but declined it stating that he doesn't need it.
Discussed with Nurse. Will cont to follow
Diabetes History
- -
Type of Diabetes: 2
Pre-Admission Diabetes Regimen
01/14/25
05:09
Creatinine 1.2
Lab Results
Hemoglobin A1c 9.0 % (4.0-5.6) H 01/10/25 06:05
Insulin Pump Settings
IP Diabetes Regimen
01/13/25 01/13/25 01/13/25
11:58 18:10 22:02
Glucose
POC Glucose 108 H 86 129 H
01/14/25
05:09
Glucose 106 H
POC Glucose
Meal type: Lunch
Meal type: Breakfast
Patient Education
[2025-01-14 07:50] LABS: Glucose - Point of Care 117 mg/dl (70-99)
[2025-01-14] MEDS: GLUCOTROL 2.5 MG PO (08:43)
[2025-01-14] MEDS: VITAMIN D3 (cholecalciferol) 125 MCG PO (08:43)
[2025-01-14] MEDS: LASIX 80 MG IV ×2 (08:43→16:52)
[2025-01-14] MEDS: TOPROL XL 25 MG PO ×2 (08:43→19:49)
[2025-01-14] MEDS: LOW STRENGTH ASPIRIN 81 MG PO (08:43)
[2025-01-14] MEDS: FARXIGA 10 MG PO (08:43)
[2025-01-14] MEDS: PRADAXA 150 MG PO ×2 (08:46→19:49)
[2025-01-14] MEDS: HYDROCORTISONE 2.5% OINTMENT TOPICAL ×2 (08:49→19:50)
--- NOTE | 2025-01-14 10:27 | W.PN.CD ---
Today's Communication / Plan
-
case mgmt c/s for entresto
cont lasix 80mg IV bid
Impression / Plan
-
IMPRESSION/PLAN: 59M with heart failure, atrial fibrillation, uncontrolled type 2 diabetes, & right BKA, presented to the emergency department with a chief complaint of progressive swelling.
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 Benjamin ([facility])
Heart failure, mEF. acute. NICM EF 40-45%
-unclear dry weight
-severe, requiring hospitalization and IV diuresis, with close monitoring of labs/tele
-Toprol XL 25mg bid
-Started Farxiga 10 mg and aldactone 25mg daily
-case mgmt c/s for entresto
-cont lasix 80mg IV bid
Atrial fibrillation, paroxysmal
-In sinus rhythm
-Oral Anticoagulation: Dabigatran 150 mg twice daily, he denies missed doses and abnormal bleeding
-[id number]: score at least 2 (Heart failure, Diabetes Mellitus)
CAD: nonobstructive (s/p cath this admission with 50% diagnonal)
-ASA, statin
Mild/moderate MR and TR
-outpatient f/u
PVCs, triplet on telemetry, increase beta payton
Type 2 diabetes mellitus, uncontrolled, HgbA1c 9.0%, he is not on any antidiabetic agents in the outpatient setting
Right BKA
morbid obesity
Physical Exam
Vital Signs/Labs
Vital Signs
Temp Pulse Resp BP Pulse Ox
97.5 F 72 19 127/81 95
01/14/25 07:05 01/14/25 08:43 01/14/25 07:05 01/14/25 08:43 01/14/25 07:05
01/13/25 01/14/25 01/15/25
06:59 06:59 06:59
Actual Weight 156.234 kg 152.815 kg
01/14/25 05:09
01/14/25 05:09
Magnesium 2.2 mg/dl (1.6-2.3) 01/14/25 05:09
Triglycerides 72 mg/dl (10-149) 01/11/25 05:28
LDL Cholesterol, Calc 63 mg/dl 01/11/25 05:28
VLDL Cholesterol, Calc 14 mg/dl (0-30) 01/11/25 05:28
HDL Cholesterol 25 mg/dl 01/11/25 05:28
01/09/25
19:39
Jex-W-Cynbzhrfoze Pept 3730
Physical Exam
Constitutional: No acute distress and Comfortable
EENT: Moist mucous membranes
Cardiovascular: Rhythm & rate is regular, JVD present and Systolic murmur present
Respiratory: Respiratory effort normal and Lungs clear to auscul.
Neuro/Psych: AO x 3
Data Reviewed
-
Date of Service: January 14, 2025
EKG: Other (Tele: SR 70s, PVC's, brief NSVT)
Labs: Labs Reviewed by me
[2025-01-14 12:21] LABS: Glucose - Point of Care 125 mg/dl (70-99)
--- NOTE | 2025-01-14 15:30 | CM ---
Patient seen at bedside. Patient for medication cost, not covered per [facility], not in formulary, CM will update patient and physician.
[2025-01-14] MEDS: ALDACTONE 25 MG PO (16:52)
[2025-01-14] MEDS: CRESTOR 10 MG PO (16:53)
--- NOTE | 2025-01-14 17:01 | W.PN.HOSP.TC ---
Addendum entered and electronically signed by Diana Rowley MD 01/14/25 20:06:
pt also has essential HTN--cont diuresis--adding BP meds as GDMT
Addendum entered and electronically signed by Diana Rowley MD 01/14/25 17:25:
I saw and evaluated the patient independently. I reviewed the resident�s note and agree with findings and plan as documented by Dr. Rodgers.
GENERAL: well developed, well nourished, male in no apparent distress
HEENT: NC/AT--no O2 requirements
HEART: regular rate and rhythm, +S1, +S2
LUNGS : clear to auscultation bilaterally
ABDOM: soft, nontender, nondistended, + bowel sounds
EXT: no cyanosis, clubbing-- 4+ edema bilaterally--right BKA
NEUROLOGIC: grossly intact
: scrotal swelling improved
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
stenosis, no intervention needed--apprec cards--cont IV lasix BID--daily weights, I/Os--cont aldactone, farxiga, entresto, metoprolol--IF dry weight is 132kg, he needs about 20kg more off...but dry weight unclear
DM2--not on diabetic medications, despite HGB A1C of 9-- SSI/accuchecks--Appreciate Diabetes ANGER CONTROL COUNSELOR
h/o atrial fibrillation/flutter, unspecified type-- cont dabigatran/BB
Morbid obesity due to excess calories
h/o BKA
DVT proph
Code status--FULL
Original Note:
Today's Communication/Plan
-
Continue IV diuresis
Assessment / Plan
Assessment / Plan
59-year-old male with type 2 diabetes mellitus, CHF, Right BKA, who presents with bilateral lower extremity, scrotal, and abdominal swelling
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
proBNP 3700
Chest x-ray shows moderate acute interstitial and alveolar cardiogenic pulmonary edema
Echo with EF 40-45%, with LAD right wall motion abnormality.
-Check I/Os, daily wts. Unclear dry weight, but diuresing well on Lasix 80mg IV BID (increased from 40 BID), consider PO lasix tomorrow
-Continue spironolactone, farxiga, asp, metoprolol. To start Entresto if affordable coverage
CAD:
S/P heart cath with 50% single vessel non-obstructive stenosis
Other problems:
PVCs: Seen on telemetry- metoprolol.
DM2: not on diabetic medications. a1c 9.0%, SSI/accuchecks/diabetic diet. Continue Glipizide 2.5mg. Appreciate Diabetes ANGER CONTROL COUNSELOR
paroxysmal atrial fibrillation/flutter: cont metoprolol, Dabigatran 150mg BID
Morbid obesity due to excess calories
h/o BKA
FULL code
DVT ppx: dabigatran held for cath
Anticipated Discharge: 24 - 48 hours
Subjective/Interval History
-
Date of Service: January 14, 2025
No complaints
Objective Data
-
Labs:
Laboratory Results
01/14/25
05:09
WBC 6.0
Hgb 13.4
Hct 43.0
Plt Count 228
Sodium 137
Potassium 3.7
Chloride 93 L
Carbon Dioxide 35 H
BUN 24 H
Creatinine 1.2
Glucose 106 H
Calcium 8.8
Vital Signs:
Vital Signs
Temp Pulse Resp BP Pulse Ox
98.0 F 72 19 121/73 96
01/14/25 15:05 01/14/25 16:52 01/14/25 15:05 01/14/25 16:52 01/14/25 15:05
I&O
01/13/25 01/14/25 01/15/25
06:59 06:59 06:59
Intake Total 1800 / 1800 480 / 480
Output Total 6800 / 6800 3095 / 3095
Balance -5000 / -5000 -2615 / -2615
Review of Systems
-
History Source: Patient
Respiratory: Denies Trouble Breathing
Cardiac: Denies Chest Pain or Palpitations
Abdomen/GI: Denies Abdominal Pain, Nausea or Vomiting
Genitourinary: Reports Other (improvement in scrotal edema)
Physical Exam
-
General: Well Nourished, No Apparent Distress and Comfortable; Negative Respiratory Distress
HEENT: Normocephalic, Atraumatic and Moist Mucous Membranes
Respiratory: Clear to Auscultation and Non Labored Respirations; Negative Wheezes, Rales, Rhonchi or Crackles
Cardiac: Regular Rhythm and S1/S2; Negative Murmur, Rub or Calf Tenderness
GI: Soft, Nontender, Nondistended and Normal Bowel Sounds
Musculoskeletal: Edema, Right Lower Extrem and Edema, Left Lower Extrem
Skin: Warm and Dry
Neuro: Awake, Alert and Oriented
Psych: Calm
[2025-01-14 17:04] LABS: Glucose - Point of Care 133 mg/dl (70-99)
[2025-01-14 21:34] LABS: Glucose - Point of Care 171 mg/dl (70-99)
[2025-01-15 03:00] VITALS: BP 119/82
[2025-01-15 06:00] VITALS: BMI 42.0
[2025-01-15 07:05] LABS: Blood Urea Nitrogen 26 mg/dl (9-20); Calcium 8.9 mg/dl (8.4-10.2); Carbon Dioxide 33 mmol/L (22-30); Chloride 96 mmol/L (98-107); Estimated Creatinine Clearance 86 ml/min; Glucose 122 mg/dl (70-99); Magnesium 2.4 mg/dl (1.6-2.3); Potassium 3.6 mmol/L (3.5-5.1); Sodium 137 mmol/L (135-145); eGFR 57.54
[2025-01-15] MEDS: PRADAXA 150 MG PO ×2 (07:37→21:03)
[2025-01-15] MEDS: LASIX 80 MG IV (07:37)
[2025-01-15] MEDS: TOPROL XL 25 MG PO ×2 (07:37→21:04)
[2025-01-15] MEDS: VITAMIN D3 (cholecalciferol) 125 MCG PO (07:37)
[2025-01-15] MEDS: FARXIGA 10 MG PO (07:37)
[2025-01-15] MEDS: GLUCOTROL 2.5 MG PO (07:37)
[2025-01-15] MEDS: HYDROCORTISONE 2.5% OINTMENT TOPICAL ×2 (07:39→22:48)
[2025-01-15 07:47] VITALS: BP 132/79
[2025-01-15 07:54] LABS: Glucose - Point of Care 138 mg/dl (70-99)
[2025-01-15] MEDS: NOVOLOG FLEXPEN-MODERATE RESISTANCE SC ×2 (08:11→11:43)
--- NOTE | 2025-01-15 08:16 | PN.DE.MGMTRT ---
Insulin Management
- -
01/15/2025: Diabetes Management Consult Follow up
Patient admitted with progressive swelling due to acute CHF Exacerbation. PMH: CHF, A-Fib, RBKA, and uncontrolled T2DM. Of note, pt was not on any antidiabetic agents in the outpatient setting. A1C 9.0%, Cr 1.1, eGFR>60.
Pt awake, alert, oriented, sitting up in bed, offers no complaints, able to discuss diabetes management. States he was taking Metformin and Glipizide but stopped taking both meds several years ago. Also reports that he has a glucose meter at home
but does not test his blood sugars.
01/15 Cardiac cath completed 01/13. Glucose range 106 to 171, fasting today 122 venous. Will make no change to regimen, glipizide 2.5 mg daily with Farxiga 10 mg daily with moderate corrective insulin
Pt was offered a new glucose meter but declined it stating that he doesn't need it.
Discussed with Nurse. Will cont to follow
Diabetes History
- -
Type of Diabetes: 2
Pre-Admission Diabetes Regimen
01/15/25
05:13
Creatinine 1.4 H
Lab Results
Hemoglobin A1c 9.0 % (4.0-5.6) H 01/10/25 06:05
Insulin Pump Settings
IP Diabetes Regimen
01/14/25 01/14/25 01/14/25
12:20 17:03 21:33
Glucose
POC Glucose 125 H 133 H 171 H
01/15/25 01/15/25
05:13 07:52
Glucose 122 H
POC Glucose 138 H
Meal type: Dinner
Meal type: Lunch
Meal type: Breakfast
Amount consumed: 100%
Amount consumed: 100%
Amount consumed: 100%
Patient Education
--- NOTE | 2025-01-15 09:24 | W.PN.CD ---
Today's Communication / Plan
-
NANETTE
-stop IV lasix, and assess for PO tomorrow
Impression / Plan
-
IMPRESSION/PLAN: 59M with heart failure, atrial fibrillation, uncontrolled type 2 diabetes, & right BKA, presented to the emergency department with a chief complaint of progressive swelling.
Primary nutrition club ambassador: Dr. Benjamin ([facility])
Heart failure, mEF. acute. NICM EF 40-45%
-unclear dry weight: will stop diuresing at 148 kg due to NANETTE
-Toprol XL 25mg bid
-Started Farxiga 10 mg and aldactone 25mg daily
-case mgmt c/s for entresto: no coverage
-can re-assess as outpatient
-stop IV lasix, and assess for PO tomorrow
-trend Cr due to NANETTE
-perhaps 80mg PO daily
Atrial fibrillation, paroxysmal
-In sinus rhythm ; brief A fib and NSVT; continue Toprol XL
-Oral Anticoagulation: Dabigatran 150 mg twice daily, he denies missed doses and abnormal bleeding
-[id number]: score at least 2 (Heart failure, Diabetes Mellitus)
CAD: nonobstructive (s/p cath this admission with 50% diagnonal)
-statin
-no ASA since on OAC
Mild/moderate MR and TR
-outpatient f/u
PVCs, triplet on telemetry, increase beta payton
Type 2 diabetes mellitus, uncontrolled, HgbA1c 9.0%, he is not on any antidiabetic agents in the outpatient setting
Right BKA
morbid obesity
Physical Exam
Vital Signs/Labs
Vital Signs
Temp Pulse Resp BP Pulse Ox
97.7 F 64 16 132/79 93
01/15/25 07:47 01/15/25 07:47 01/15/25 07:47 01/15/25 07:47 01/15/25 07:47
01/14/25 01/15/25 01/16/25
06:59 06:59 06:59
Actual Weight 152.815 kg 148.461 kg
01/14/25 05:09
01/15/25 05:13
Magnesium 2.4 mg/dl (1.6-2.3) H 01/15/25 05:13
Triglycerides 72 mg/dl (10-149) 01/11/25 05:28
LDL Cholesterol, Calc 63 mg/dl 01/11/25 05:28
VLDL Cholesterol, Calc 14 mg/dl (0-30) 01/11/25 05:28
HDL Cholesterol 25 mg/dl 01/11/25 05:28
01/09/25
19:39
Fbg-I-[id number] Pept 3730
Physical Exam
Constitutional: No acute distress and Comfortable
EENT: Moist mucous membranes
Cardiovascular: Rhythm & rate is regular, JVD pressure is normal and Systolic murmur present
Respiratory: Respiratory effort normal
Neuro/Psych: AO x 3
Data Reviewed
-
Date of Service: January 15, 2025
EKG: Other (Tele: SR, brief A fib, brief NSVT)
Labs: Labs Reviewed by me
[2025-01-15 11:16] VITALS: BP 107/60
[2025-01-15 11:40] LABS: Glucose - Point of Care 130 mg/dl (70-99)
--- NOTE | 2025-01-15 13:38 | CM ---
Patient seen at bedside. Patient plan is for discharge home tomorrow. Patient indicated that he was eager to go home with his car that is in the parking lot. CM will continue to follow for discharge planning needs.
Plan; home with family supports
--- NOTE | 2025-01-15 14:39 | W.PN.HOSP.TC ---
Addendum entered and electronically signed by Diana Rowley MD 01/15/25 16:07:
I saw and evaluated the patient independently. I reviewed the resident�s note and agree with findings and plan as documented by Dr. Rodgers.
GENERAL: well developed, well nourished, male in no apparent distress
HEENT: NC/AT--no O2 requirements
HEART: regular rate and rhythm, +S1, +S2
LUNGS : clear to auscultation bilaterally
ABDOM: soft, nontender, nondistended, + bowel sounds
EXT: no cyanosis, clubbing-- 4+ edema bilaterally--right BKA
NEUROLOGIC: grossly intact
: scrotal swelling improved
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
stenosis, no intervention needed--apprec cards--hold IV lasix, reassess tomorrow--daily weights, I/Os--cont aldactone, farxiga, entresto, metoprolol--think just about at dry weight as creat bumped to 1.4
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
h/o atrial fibrillation/flutter, unspecified type-- cont dabigatran/BB
Morbid obesity due to excess calories
Essential HTN--cont diuresis--adding BP meds as GDMT
h/o BKA
DVT proph
Code status--FULL
Original Note:
Today's Communication/Plan
-
Hold Diuresis
Assessment / Plan
Assessment / Plan
59-year-old male with type 2 diabetes mellitus, CHF, Right BKA, who presents with bilateral lower extremity, scrotal, and abdominal swelling
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
proBNP 3700
Chest x-ray shows moderate acute interstitial and alveolar cardiogenic pulmonary edema
Echo with EF 40-45%, with LAD right wall motion abnormality.
-Check I/Os, daily wts. Unclear dry weight, but diuresed 21kg on Lasix 80mg IV BID. Current weight 148kg. Still significantly edematous. Hold diuresis for NANETTE
-Continue GDMT: spironolactone, farxiga, metoprolol. Entresto not covered.
NANETTE:
Secondary to diuresis. Cr 1.4, baseline 1.1
-Appreciate cards, hold diuresis.
CAD:
S/P heart cath with 50% single vessel non-obstructive stenosis
-No Asp given Dabigatran
Other problems:
PVCs: Seen on telemetry - metoprolol.
DM2: not on diabetic medications. a1c 9.0%, SSI/accuchecks/diabetic diet. Continue Glipizide 2.5mg and Farxiga 10mg. 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
paroxysmal atrial fibrillation/flutter: cont metoprolol, Dabigatran 150mg BID
Morbid obesity due to excess calories
h/o BKA
FULL code
DVT ppx: dabigatran
Anticipated Discharge: 24 - 48 hours
Subjective/Interval History
-
Date of Service: January 15, 2025
Pt feels well and would like to go home. No complaints
Objective Data
-
Labs:
Laboratory Results
01/15/25
05:13
Sodium 137
Potassium 3.6
Chloride 96 L
Carbon Dioxide 33 H
BUN 26 H
Creatinine 1.4 H
Glucose 122 H
Calcium 8.9
Vital Signs:
Vital Signs
Temp Pulse Resp BP Pulse Ox
98 F 62 16 107/60 93
01/15/25 11:16 01/15/25 11:16 01/15/25 11:16 01/15/25 11:16 01/15/25 11:16
I&O
01/14/25 01/15/25 01/16/25
06:59 06:59 06:59
Intake Total 480 / 480 1919 / 1919
Output Total 3095 / 3095 4450 / 4450
Balance -2615 / -2615 -2530 / -2530
Review of Systems
-
History Source: Patient
Constitutional: Reports No Symptoms
Respiratory: Denies Cough or Trouble Breathing
Cardiac: Denies Chest Pain or Palpitations
Physical Exam
-
Respiratory: Clear to Auscultation and Non Labored Respirations; Negative Wheezes, Rales, Rhonchi or Crackles
Cardiac: Regular Rhythm and S1/S2; Negative Murmur, Rub or Calf Tenderness
GI: Soft, Nontender, Nondistended and Normal Bowel Sounds
Musculoskeletal: No Cyanosis, Edema, Right Lower Extrem and Edema, Left Lower Extrem
Skin: Warm and Dry
Neuro: Awake, Alert and Oriented
Psych: Calm
[2025-01-15 15:47] VITALS: BP 122/74
[2025-01-15 16:51] LABS: Glucose - Point of Care 171 mg/dl (70-99)
[2025-01-15] MEDS: NOVOLOG FLEXPEN-MODERATE RESISTANCE 1 UNITS SC (17:48)
[2025-01-15] MEDS: ALDACTONE 25 MG PO (17:49)
[2025-01-15] MEDS: CRESTOR 10 MG PO (17:49)
[2025-01-15 21:34] LABS: Glucose - Point of Care 126 mg/dl (70-99)
[2025-01-15 23:30] VITALS: BP 131/77
[2025-01-16 05:13] VITALS: BMI 41.8
[2025-01-16 06:21] LABS: Blood Urea Nitrogen 30 mg/dl (9-20); Calcium 8.8 mg/dl (8.4-10.2); Carbon Dioxide 30 mmol/L (22-30); Chloride 97 mmol/L (98-107); Estimated Creatinine Clearance 100 ml/min; Glucose 132 mg/dl (70-99); Magnesium 2.3 mg/dl (1.6-2.3); Potassium 3.9 mmol/L (3.5-5.1); Sodium 135 mmol/L (135-145); eGFR > 60.00
[2025-01-16 07:31] VITALS: BP 114/72
[2025-01-16 07:41] LABS: Glucose - Point of Care 121 mg/dl (70-99)
--- NOTE | 2025-01-16 08:13 | CM ---
VM left for patient pharmacy service to confirm cost of entresto.
[2025-01-16] MEDS: NOVOLOG FLEXPEN-MODERATE RESISTANCE SC ×2 (08:34→11:56)
[2025-01-16] MEDS: TOPROL XL 25 MG PO (08:34)
[2025-01-16] MEDS: PRADAXA 150 MG PO (08:34)
[2025-01-16] MEDS: VITAMIN D3 (cholecalciferol) 125 MCG PO (08:34)
[2025-01-16] MEDS: FARXIGA 10 MG PO (08:35)
[2025-01-16] MEDS: GLUCOTROL 2.5 MG PO (08:35)
--- NOTE | 2025-01-16 08:36 | PN.DE.MGMTRT ---
Insulin Management
- -
01/16/2025: Diabetes Management Follow up
Patient admitted with progressive swelling due to acute CHF Exacerbation. PMH: CHF, A-Fib, RBKA, and uncontrolled T2DM. Of note, pt was not on any antidiabetic agents in the outpatient setting. A1C 9.0%, Cr 1.1, eGFR>60.
States he was taking Metformin and Glipizide but stopped taking both meds several years ago. Also reports that he has a glucose meter at home but does not test his blood sugars. Cardiac cath completed 01/13.
Pt awake, alert, oriented, sitting up in bed, offers no complaints, able to discuss diabetes management.
Glucose range 130 to 171, fasting today 132 venous.
Will make no change to regimen, glipizide 2.5 mg daily with Farxiga 10 mg daily with moderate corrective insulin
Pt was offered a new glucose meter but declined it stating that he doesn't need it.
Discussed with Nurse. Will cont to follow
Diabetes History
- -
Type of Diabetes: 2
Pre-Admission Diabetes Regimen
01/16/25
05:16
Creatinine 1.2
Lab Results
Hemoglobin A1c 9.0 % (4.0-5.6) H 01/10/25 06:05
Insulin Pump Settings
IP Diabetes Regimen
01/15/25 01/15/25 01/15/25
11:39 16:50 21:33
Glucose
POC Glucose 130 H 171 H 126 H
01/16/25 01/16/25
05:16 07:39
Glucose 132 H
POC Glucose 121 H
Patient Education
[2025-01-16] MEDS: HYDROCORTISONE 2.5% OINTMENT TOPICAL (08:39)
--- NOTE | 2025-01-16 09:18 | W.PN.CD ---
Today's Communication / Plan
-
Patient is safe for discharge from a cardiovascular standpoint.
Discharge regimen: Metoprolol XL 25 mg twice daily, spironolactone 25 mg daily, Farxiga 10 mg daily, valsartan 40 mg twice daily, Lasix 80 mg daily
Discharge dry weight: 325 pounds. I asked patient to weigh himself daily and call if weight increases by 3 pounds overnight or 5 pounds in 1 week.
He will request follow-up with his outpatient personal banking advisor in 2-4 weeks.
Impression / Plan
-
IMPRESSION/PLAN: 59M with heart failure, atrial fibrillation, uncontrolled type 2 diabetes, & right BKA, presented to the emergency department with a chief complaint of progressive swelling, found to have new mildly reduced EF.
Primary personal banking advisor: Dr. Benjamin ([facility])
Heart failure, mEF. acute. NICM EF 40-45%
-Discharge dry weight is 325 lb
-Toprol XL 25mg bid
-Started Farxiga 10 mg and aldactone 25mg daily
-No coverage for Entresto per case management. Will start valsartan 40 mg twice daily
-Will need BMP/mag in 1 week
-I have asked him to request outpatient follow-up with his personal banking advisor in 2-4 weeks
-Discharge diuresis regimen: Lasix 80 mg daily (previously 40 mg daily)
Atrial fibrillation, paroxysmal
-In sinus rhythm ; brief A fib and NSVT; continue Toprol XL
-Oral Anticoagulation: Dabigatran 150 mg twice daily, he denies missed doses and abnormal bleeding
-[id number]: score at least 2 (Heart failure, Diabetes Mellitus)
CAD: nonobstructive (s/p cath this admission with 50% diagnonal)
-statin
-no ASA since on OAC
Mild/moderate MR and TR
-outpatient f/u
PVCs, triplet on telemetry, increase beta pyaton
Type 2 diabetes mellitus, uncontrolled, HgbA1c 9.0%, he is not on any antidiabetic agents in the outpatient setting
Right BKA
morbid obesity
Subjective: Feels well today. Ready to go home. Creatinine is 1.2 from 1.4 yesterday. Weight is 147.5 kg from 148.4 kg yesterday.
Physical Exam
Vital Signs/Labs
Vital Signs
Temp Pulse Resp BP Pulse Ox
97.6 F 69 16 114/72 92
01/16/25 07:31 01/16/25 07:31 01/16/25 07:31 01/16/25 07:31 01/16/25 07:31
01/15/25 01/16/25 01/17/25
06:59 06:59 06:59
Actual Weight 148.461 kg 147.559 kg
01/14/25 05:09
01/16/25 05:16
Magnesium 2.3 mg/dl (1.6-2.3) 01/16/25 05:16
Triglycerides 72 mg/dl (10-149) 01/11/25 05:28
LDL Cholesterol, Calc 63 mg/dl 01/11/25 05:28
VLDL Cholesterol, Calc 14 mg/dl (0-30) 01/11/25 05:28
HDL Cholesterol 25 mg/dl 01/11/25 05:28
01/09/25
19:39
Dhg-T-[id number] Pept 3730
Physical Exam
Constitutional: No acute distress and Comfortable
Cardiovascular: Rhythm & rate is regular, Pedal edema is absent, S1S2 is normal and Murmur/rub/gallop absent
Respiratory: Respiratory effort normal and Lungs clear to auscul.
Neuro/Psych: AO x 3
Data Reviewed
-
Date of Service: January 16, 2025
Medical Decision Making: Reviewed Test Results, Independent Historian Assessment, Test Interpretation and Review of Case with other Provider
Echo: Report Reviewed by me
Labs: Labs Reviewed by me
[2025-01-16] MEDS: LASIX 80 MG PO (09:33)
[2025-01-16] MEDS: DIOVAN 40 MG PO (09:33)
[2025-01-16 11:51] LABS: Glucose - Point of Care 139 mg/dl (70-99)
--- NOTE | 2025-01-16 13:18 | CM ---
Patient seen at bedside with physician. Patient eager to go home and aware of medication changes and has a ride home. CM will continue to follow for discharge planning needs.
Plan; home with no needs.
[2025-01-16 13:41] VITALS: BP 124/73
--- NOTE | 2025-01-16 18:42 | W.PN.HOSP.TC ---
Addendum entered and electronically signed by Diana Rowley MD 01/16/25 18:58:
I saw and evaluated the patient independently. I reviewed the resident�s note and agree with findings and plan as documented by Dr. Rodgers.
GENERAL: well developed, well nourished, male in no apparent distress
HEENT: NC/AT--no O2 requirements
HEART: regular rate and rhythm, +S1, +S2
LUNGS : clear to auscultation bilaterally
ABDOM: soft, nontender, nondistended, + bowel sounds
EXT: no cyanosis, clubbing-- 4+ edema bilaterally--right BKA
NEUROLOGIC: grossly intact
: scrotal swelling improved
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
stenosis, no intervention needed--apprec cards---daily weights, I/Os--cont aldactone, farxiga, entresto, metoprolol, lasix--think just about at dry weight
NANETTE--due to overdiuresis--held lasix--creat improved
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
h/o atrial fibrillation/flutter, unspecified type-- cont dabigatran/BB
Morbid obesity due to excess calories
Essential HTN--cont diuresis--adding BP meds as GDMT
h/o BKA
DVT proph
Code status--FULL
ok for d/c
Original Note:
Today's Communication/Plan
-
DC planning
Assessment / Plan
Assessment / Plan
59-year-old male with type 2 diabetes mellitus, CHF, Right BKA, who presents with bilateral lower extremity, scrotal, and abdominal swelling
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
proBNP 3700
Chest x-ray shows moderate acute interstitial and alveolar cardiogenic pulmonary edema
Echo with EF 40-45%, with LAD right wall motion abnormality.
-Check I/Os, daily wts. Unclear dry weight, but diuresed 21kg on Lasix 80mg IV BID. Current weight 148kg. Still significantly edematous. Lasix was held for NANETTE. Restart lasix but PO 80mg.
-Continue GDMT: spironolactone, farxiga, metoprolol. Entresto not covered, so can DC on Valsartan 40mg BID
NANETTE:
Secondary to diuresis. Cr 1.4, baseline 1.1
-IV lasix held, with CR return to 1.2. Can discharge on 80mg PO lasix daily
-Appreciate cards
CAD:
S/P heart cath with 50% single vessel non-obstructive stenosis
-No Asp given Dabigatran
Other problems:
PVCs: Seen on telemetry - metoprolol.
DM2: not on diabetic medications. a1c 9.0%, SSI/accuchecks/diabetic diet. Continue Glipizide 2.5mg and Farxiga 10mg. 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
paroxysmal atrial fibrillation/flutter: cont metoprolol, Dabigatran 150mg BID
Morbid obesity due to excess calories
h/o BKA
FULL code
DVT ppx: dabigatran
Anticipated Discharge: Today
Subjective/Interval History
-
Date of Service: January 16, 2025
No complaints.
Objective Data
-
Vital Signs:
Vital Signs
Temp Pulse Resp BP Pulse Ox
98.1 F 71 16 124/73 98
01/16/25 13:41 01/16/25 13:41 01/16/25 13:41 01/16/25 13:41 01/16/25 13:41
I&O
01/15/25 01/16/25 01/17/25
06:59 06:59 06:59
Intake Total 0 / 1920 1440 / 1440
Output Total 4450 / 4450 1620 / 1620
Balance -2530 / -2530 -180 / -180
Review of Systems
-
History Source: Patient
Respiratory: Denies Cough or Trouble Breathing
Cardiac: Denies Chest Pain or Palpitations
Abdomen/GI: Denies Abdominal Pain, Nausea or Vomiting
Physical Exam
-
General: Well Nourished, No Apparent Distress and Comfortable; Negative Respiratory Distress
HEENT: Normocephalic, Atraumatic, Moist Mucous Membranes and Anicteric
Respiratory: Clear to Auscultation and Non Labored Respirations; Negative Wheezes, Rales, Rhonchi or Crackles
Cardiac: Regular Rhythm and S1/S2; Negative Murmur, Rub or Calf Tenderness
GI: Soft, Nontender, Nondistended and Normal Bowel Sounds
Musculoskeletal: No Clubbing, No Cyanosis, Edema, Right Lower Extrem and Edema, Left Lower Extrem
Skin: Warm and Dry
Neuro: Awake, Alert and Oriented
Psych: Calm
== END 2025-01-16 14:30 | disposition home or self-care (01) | DRG 286 ==
LOC: 3 WEST ACU 21:36
PROVIDERS: Internal Medicine; Nurse Practitioner Adult Health; Nurse Practitioner Gerontology; Student in an Organized Health Care Education/Training Program; ADMITTING PHYSICIAN Hospitalist; ATTENDING PHYSICIAN Internal Medicine; CONSULT PHYSICIAN Internal Medicine Cardiovascular Disease; EMERGENCY PHYSICIAN Emergency Medicine; FAMILY PHYSICIAN Family Medicine
PROC: 4A023N7 Measurement of Cardiac Sampling and Pressure, Left Heart, Percutaneous Approach (ICD-10-PCS; 2025-01-13)
PROC: 4A033BC Measurement of Arterial Pressure, Coronary, Percutaneous Approach (ICD-10-PCS; 2025-01-13)
PROC: B2111ZZ Fluoroscopy of Multiple Coronary Arteries using Low Osmolar Contrast (ICD-10-PCS; 2025-01-13)
DX: I11.0 Hypertensive heart disease with heart failure (principal); I50.23 Acute on chronic systolic (congestive) heart failure; I48.92 Unspecified atrial flutter; Z68.41 Body mass index [BMI] 40.0-44.9, adult; I47.20 Ventricular tachycardia, unspecified; N17.9 Acute kidney failure, unspecified; N50.89 Other specified disorders of the male genital organs; I49.3 Ventricular premature depolarization; E66.01 Morbid (severe) obesity due to excess calories; I25.10 Atherosclerotic heart disease of native coronary artery without angina pectoris; I48.0 Paroxysmal atrial fibrillation; E11.65 Type 2 diabetes mellitus with hyperglycemia; Z60.2 Problems related to living alone; Z89.511 Acquired absence of right leg below knee; Z87.891 Personal history of nicotine dependence; Z79.01 Long term (current) use of anticoagulants; Z88.0 Allergy status to penicillin; Z79.02 Long term (current) use of antithrombotics/antiplatelets
CPT/HCPCS: 71046; 76937; 80048; 80053; 80061; 82962; 83036; 83735; 83880; 84100; 84484; 85025; 85027; 93005; 93306; 93458; 93799; 94760; 96374; 97163; 97166; 99152; 99153; 99285; C1769; C1887; C1894; Q9950; Q9967